=== PATIENT | female | born 1965 | race Caucasian/White ===

== ENCOUNTER → 2020-01-07 11:35 | Outpatient (BNVA) | payer SELFPAY | PROVIDERS: Family Provider Nurse Practitioner Family; PCP Nurse Practitioner Family; Visit Provider Emergency Medicine | DX: R05 Cough (principal); R09.89 Other specified symptoms and signs involving the circulatory and respiratory systems; F17.200 Nicotine dependence, unspecified, uncomplicated | CPT/HCPCS: 71046 ==

== ENCOUNTER → 2021-03-14 11:27 | Outpatient (BNVA) | payer SELFPAY | PROVIDERS: Family Provider Nurse Practitioner Family; PCP Nurse Practitioner Family; Visit Provider Family Medicine | DX: R53.83 Other fatigue (principal); I10 Essential (primary) hypertension; Z13.1 Encounter for screening for diabetes mellitus; Z13.220 Encounter for screening for lipoid disorders; Z13.6 Encounter for screening for cardiovascular disorders | CPT/HCPCS: 80053; 80061; 85025 ==

== ENCOUNTER → 2021-03-29 11:25 | Outpatient (BNVA) | payer SELFPAY | PROVIDERS: Family Provider Nurse Practitioner Family; PCP Nurse Practitioner Family; Visit Provider Family Medicine | DX: Z13.220 Encounter for screening for lipoid disorders (principal); Z13.6 Encounter for screening for cardiovascular disorders; I10 Essential (primary) hypertension; Z13.1 Encounter for screening for diabetes mellitus | CPT/HCPCS: 80053; 80061 ==

== ENCOUNTER 2021-06-19 01:40 | Emergency (ER) | payer OTHER, SELFPAY ==
[2021-06-19 01:53] VITALS: BP 127/80; PULSE 99; RESP 16; TEMP 37; O2SAT 88; BMI 23.6
--- NOTE | 2021-06-19 02:00 | XRR_ITS ---
PROCEDURE INFORMATION: Exam: XR Chest Exam date and time: 06/19/2021 2:00 AM Age: 56 years old Clinical indication: Chest wall pain; Additional info: Cp TECHNIQUE: Imaging protocol: XR of the chest. Views: 1 view. COMPARISON: CR XR chest 2V* [id number] 01/07/2020 11:46 AM FINDINGS: Lungs: Unremarkable. No consolidation. Pleural spaces: Unremarkable. No pleural effusion. No pneumothorax. Heart/Mediastinum: Unremarkable. No cardiomegaly. Bones/joints: Unremarkable. XR/XR chest 1V portable [id number] IMPRESSION: No acute findings.
--- NOTE | 2021-06-19 02:00 | ECG_ITS ---
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 Measurements Intervals [place] Rate: 96 P: 78 UT: 182 QRS: 69 QRSD: 85 T: 55 QT: 347 QTc: 441 Interpretive Statements SINUS RHYTHM POSSIBLE RIGHT ATRIAL ENLARGEMENT [0.25mV P-WAVE] No previous ECG available for comparison Electronically Signed On 06-19-2021 16:58:50 MASTER CONTROL ENGINEER by Татьяна Roberts M.D. [id number] f
--- NOTE | 2021-06-19 02:27 | ED_ITS ---
HPI - Chest Pain General: Chief Complaint: Chest Pain Stated Complaint: SOS Left Side Body Pain\Chest Pains Time Seen by Provider: 06/19/21 01:59 Source: patient History of Present Illness: 56-year-old female with a history of COPD. She presents with sharp chest pain, left-sided radiating down her left arm. She says it has been there all day. She says in order to get the pain to go away, she drank alcohol most of the day, without any relief. She states the pain comes and goes. She has been coughing. Productive of clear sputum. No fever. She has had contact with Covid positive patients. She has not used an inhaler, stating she could not afford it. She denies history of heart disease. MD complaint: chest pain Pertinent past history: other Onset (ago): hour(s) Timing of current episode: episodic Prior episodes: Yes Onset: during rest Pain location: left chest Pain radiation: left arm Severity: severe Quality: sharp Relieving factors: nothing Exacerbating factors: nothing Context: recent illness Associated symptoms: Reports diaphoresis and dyspnea; Deny abdominal pain, fever(s), leg edema, nausea, palpitations or vomiting Treatment prior to arrival: none Review of Systems Const: Reports: diaphoresis; Denies: fever(s) Card: Denies: palpitations Resp: Reports: dyspnea GI: Reports: diarrhea; Denies: abdominal pain, nausea or vomiting Skin/Breast: Denies: rash Psych: Reports: anxiety PFSH ED PFSH: Medical History COPD (chronic obstructive pulmonary disease) Hypertension Smoking Social History (Reviewed 04/25/21 @ 07:21 by Karlene Olivera [facility]) Smoking and tobacco status: current every day smoker cigarettes Packs smoked per day: 1 Alcohol intake: current Alcohol intake frequency: 3 or more drinks per day Alcohol type: beer Physical Exam Const: GENERAL APPEARANCE: cooperative and anxious NUTRITIONAL APPEARANCE: thin HENMT: COMMON NORMALS: normocephalic and Normal external nose present HEAD & SCALP: normocephalic FACE & SINUS: normal facial exam NOSE: Normal external nose present Eye: COMMON NORMALS: Equal, round and reactive pupils present and EOMs intact bilaterally PUPIL: Yes Equal, round and reactive pupils present Chest: COMMONS NORMALS: normal inspection of the chest CHEST: Yes tenderness (Left anterior chest wall) Resp: COMMON NORMALS: normal respiratory effort, No use of accessory muscles and clear to auscultation bilaterally AUSCULTATION: clear to auscultation bilaterally Cardio: COMMON NORMALS: regular rate and regular rhythm RATE: regular rate RHYTHM: regular rhythm GI: COMMON NORMALS: Normal to inspection, nondistended, normoactive bowel sounds present, Soft to palpation and non-tender PALPATION: Yes Soft to palpation Extremity: COMMON NORMALS: no pedal edema Neuro: DICK COMA SCALE: document GCS findings [place] coma scale eye opening: Spontaneous [place] coma scale verbal response: Orientated [place] coma scale motor response: Obey commands [place] coma scale total score: 15 Course Vital Signs: Vital signs: Vital Signs Temperature 98.6 F 06/19/21 01:53 Pulse Rate 94 06/19/21 02:49 Respiratory Rate 13 06/19/21 02:49 Blood Pressure 147/64 06/19/21 02:49 Pulse Oximetry 100 06/19/21 02:49 MDM - Chest Pain Medical Decision Making 56-year-old female with pleuritic chest pain, cough, some shortness of breath. EKG shows a sinus rhythm with a rate of 95. Normal axis. Intervals are normal. No acute ST changes. First troponin is 6. CBC is normal. Sodium is 128, likely the result of an alcohol level of 284. Chest pain is improved after morphine. Her Covid swab is negative. Chest x-ray is negative. Her D-dimer is negative. She will be allowed home with treatment for COPD exacerbation causing pleuritic chest pain. Covid PCR is pending. Lab Data : 06/19/21 02:39 06/19/21 02:39 Radiology Impressions Chest X-Ray 06/19/21 02:00 IMPRESSION: No acute findings. Laboratory Results WBC 6.5 10^3/uL (4.0-10.0) 06/19/21 02:39 RBC 4.50 10^6/uL (4.1-5.3) 06/19/21 02:39 Hgb 14.5 g/dL (11.5-15.3) 06/19/21 02:39 Hct 41.9 % (37.0-47.0) 06/19/21 02:39 MCV 93.1 fl (81-99) 06/19/21 02:39 MCH 32.2 pg (28.0-34.0) 06/19/21 02:39 MCHC 34.6 g/dL (30.0-36.0) 06/19/21 02:39 RDW 12.3 % (12.1-15.1) 06/19/21 02:39 Plt Count 261 10^3/cmm (130-400) 06/19/21 02:39 MPV 10.3 fL (7.4-10.4) 06/19/21 02:39 Neut % (Auto) 42.5 % 06/19/21 02:39 Lymph % (Auto) 47.5 % 06/19/21 02:39 [place] % (Auto) 5.1 % 06/19/21 02:39 Eos % (Auto) 3.7 % 06/19/21 02:39 Baso % (Auto) 0.9 % 06/19/21 02:39 Neut # (Auto) 2.78 10^3/uL (1.8-7.7) 06/19/21 02:39 Lymph # (Auto) 3.1 10^3/uL (0.8-4.8) 06/19/21 02:39 [place] # (Auto) 0.3 10^3/uL (0.2-0.9) 06/19/21 02:39 Eos # (Auto) 0.2 10^3/uL (0.0-0.8) 06/19/21 02:39 Baso # (Auto) 0.1 10^3/uL (0.0-0.1) 06/19/21 02:39 Nucleated RBC % (auto) 0 % 06/19/21 02:39 Nucleated RBCs # 0.0 /100WBC 06/19/21 02:39 D-Dimer 0.32 ug/mIFEU (0-0.59) 06/19/21 03:00 Sodium 128 mmol/L (136-145) L 06/19/21 02:39 Potassium 4.7 mmol/L (3.5-5.1) 06/19/21 02:39 Chloride 92 mmol/L (98-107) L 06/19/21 02:39 Carbon Dioxide 23 mmol/L (22-29) 06/19/21 02:39 Anion Gap 17.7 (5-19) 06/19/21 02:39 BUN 8 mg/dL (6-20) 06/19/21 02:39 Creatinine 0.4 mg/dL (0.5-0.9) L 06/19/21 02:39 GFR Calculation 165.7 mL/min (90-130) H 06/19/21 02:39 Glucose 87 mg/dL (65-115) 06/19/21 02:39 Calculated Osmolality 264 mOsm/kg (285-295) L 06/19/21 02:39 Calcium 8.5 mg/dL (8.5-10.5) 06/19/21 02:39 Total Bilirubin 0.2 mg/dL (0.15-1.2) 06/19/21 02:39 AST 24 U/L (0-32) 06/19/21 02:39 ALT 16 U/L (0-33) 06/19/21 02:39 Alkaline Phosphatase 81 IU/L (35-105) 06/19/21 02:39 Creatine Kinase 232 U/L (26-192) H 06/19/21 02:39 Troponin T Baseline 8 ng/L (0-10) 06/19/21 02:39 NT-Pro-B Natriuret Pep 75 pg/mL (0-125) 06/19/21 02:39 Total Protein 7.0 g/dL (6.6-8.7) 06/19/21 02:39 Albumin 4.8 g/dL (3.5-5.2) 06/19/21 02:39 Globulin 2.2 g/dL (1.3-4.6) 06/19/21 02:39 Ethyl Alcohol 284 mg/dL (0-10) H 06/19/21 02:39 SARS-CoV-2 Ag (Rapid) Negative (Negative) 06/19/21 03:00 Discharge Plan Discharge Patient Disposition: Home Clinical Impression: Chest pain, Bronchitis, Alcohol intoxication Condition: Stable Prescriptions: New Medrol (Alfredo) 4 mg tablets,dose pack See Rx Instructions .ROUTE .COMPLEX Qty: 21 0RF Rx Instructions: orally per package directions albuterol sulfate 90 mcg/actuation HFA aerosol inhaler 2 inh INHALATION Q4H PRN (Reason: shortness of breath or wheezing) Qty: 6.7 1RF No Action ibuprofen [Advil] 200 mg tablet 200 mg PO Q6H PRN0RF verapamil 80 mg tablet 80 mg PO TID 30 Days Qty: 90 0RF cyclobenzaprine 10 mg tablet 10 mg PO TID MDD 3 tabs PRN (Reason: muscle spasm) Qty: 30 1RF Discharge Orders: Discharge ED (Routine); Ordered 06/19/21 Ordered By: Danilo Crowell Referrals: Sukhjinder Bower FNP [Primary Care Provider] - 4-7 days Discharge Diet: Advance as tolerated Discharge Activity: Limit activity as instructed Patient Instructions: Chest Pain (ED), Acute Bronchitis (ED), Alcohol Into xication (ED) Activity Restrictions/Additional Instructions: Return for worsening chest pain, shortness of breath, fever greater than 100, other concerning symptoms. Follow-up with your doctor next week Coding Level of Care Code ED Rack Washer for Tejasg Fwd Exam Comprehensive
[2021-06-19 02:48] LABS: Basophils # 0.1 10^3/uL (0.0-0.1); Basophils % 0.9 %; Eosinophils # 0.2 10^3/uL (0.0-0.8); Eosinophils % 3.7 %; Hematocrit 41.9 % (37.0-47.0); Hemoglobin 14.5 g/dL (11.5-15.3); Lymphocytes # 3.1 10^3/uL (0.8-4.8); Lymphocytes % 47.5 %; Mean Corpuscular HGB Conc 34.6 g/dL (30.0-36.0); Mean Corpuscular Hemoglobin 32.2 pg (28.0-34.0); Mean Corpuscular Volume 93.1 fl (81-99); Mean Platelet Volume 10.3 fL (7.4-10.4); Monocytes # 0.3 10^3/uL (0.2-0.9); Monocytes % 5.1 %; Neutrophils # 2.78 10^3/uL (1.8-7.7); Neutrophils % 42.5 %; Nucleated Red Blood Cells % 0 %; Platelet Count 261 10^3/cmm (130-400); Red Cell Distribution Width 12.3 % (12.1-15.1); White Blood Count 6.5 10^3/uL (4.0-10.0)
[2021-06-19 02:49] VITALS: BP 147/64; PULSE 94; RESP 13; O2SAT 100
[2021-06-19 03:21] LABS: Troponin(5th) Baseline 8 ng/L (0-10)
[2021-06-19 03:22] LABS: D Dimer 0.32 ug/mIFEU (0-0.59)
[2021-06-19 03:30] LABS: SARS Covid-2 Antigen Negative (Negative)
[2021-06-19 03:30] LABS: Albumin Level 4.8 g/dL (3.5-5.2); Alcohol Level 284 mg/dL (0-10); Alkaline Phosphatase 81 IU/L (35-105); Blood Urea Nitrogen 8 mg/dL (6-20); Calcium 8.5 mg/dL (8.5-10.5); Carbon Dioxide 23 mmol/L (22-29); Chloride 92 mmol/L (98-107); Globulin 2.2 g/dL (1.3-4.6); Glomerular Filtration Rate 165.7 mL/min (90-130); Glucose 87 mg/dL (65-115); NT Pro B Type Natriuretic Pept 75 pg/mL (0-125); Osmolality Calculated 264 mOsm/kg (285-295); Sodium 128 mmol/L (136-145); Total Bilirubin 0.2 mg/dL (0.15-1.2)
[2021-06-19 03:32] LABS: Alanine Aminotransferase 16 U/L (0-33); Anion Gap 17.7 (5-19); Aspartate Amino Transferase 24 U/L (0-32); Creatine Phosphokinase 232 U/L (26-192); Potassium 4.7 mmol/L (3.5-5.1)
--- NOTE | 2021-06-19 04:00 | ECG_ITS ---
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 Measurements Intervals [place] Rate: 87 P: 73 MN: 182 QRS: 71 QRSD: 79 T: 58 QT: 370 QTc: 445 Interpretive Statements SINUS RHYTHM No previous ECG available for comparison Electronically Signed On 06-19-2021 17:03:54 PL[address] CHANGE ROOF BOLTER by Татьяна Roberts M.D. [id number]
[2021-06-19 04:05] VITALS: RESP 16; O2SAT 99
[2021-06-19] MEDS: ondansetron 2 mg/ML SDV 2 mL 4 MG IVP (04:05)
[2021-06-19] MEDS: morphine 4 mg/mL SDV 1 mL IVP (04:05)
[2021-06-19 04:13] VITALS: BP 120/74; PULSE 91; RESP 17; O2SAT 94
[2021-06-20 17:03] LABS: Quest SARS-CoV-2 RNA NOT DETECTED (NOT DETECTED)
--- NOTE | 2021-06-22 16:00 | PC.NURSE ---
Notified of Negative test
== END 2021-06-19 04:15 | disposition home or self-care (01) ==
PROVIDERS: Emergency Provider Emergency Medicine; PCP Nurse Practitioner Family
DX: R07.9 Chest pain, unspecified (principal); J40 Bronchitis, not specified as acute or chronic; F10.129 Alcohol abuse with intoxication, unspecified; Y90.8 Blood alcohol level of 240 mg/100 ml or more; Z20.822 Contact with and (suspected) exposure to COVID-19; J44.9 Chronic obstructive pulmonary disease, unspecified; I10 Essential (primary) hypertension; F17.210 Nicotine dependence, cigarettes, uncomplicated
CPT/HCPCS: 71045; 80053; 80307; 82550; 83880; 84484; 85025; 85378; 87426; 87635; 93005; 96374; 96375; 99284; J2270; J2405; J2930

== ENCOUNTER → 2021-11-03 10:46 | Outpatient (BNVA) | payer OTHER, SELFPAY | PROVIDERS: PCP Nurse Practitioner Family; Visit Provider Family Medicine | DX: J43.9 Emphysema, unspecified (principal); M62.830 Muscle spasm of back; G44.019 Episodic cluster headache, not intractable; Z11.59 Encounter for screening for other viral diseases; Z11.4 Encounter for screening for human immunodeficiency virus [HIV]; I10 Essential (primary) hypertension | CPT/HCPCS: 80048; 86705; 86706; 86803; 87340; 87806 ==

== ENCOUNTER → 2022-03-14 13:38 | Outpatient (BNVA) | payer OTHER, SELFPAY | PROVIDERS: PCP Family Medicine; Visit Provider Family Medicine | DX: M62.830 Muscle spasm of back (principal); G44.019 Episodic cluster headache, not intractable; M54.9 Dorsalgia, unspecified; Z11.3 Encounter for screening for infections with a predominantly sexual mode of transmission | CPT/HCPCS: 72100; 81000; 87077; 87086; 87184; 87491; 87591; 87624; 87661 ==

== ENCOUNTER → 2023-03-14 13:26 | Outpatient (BNVA) | payer OTHER, SELFPAY | PROVIDERS: PCP Family Medicine; Visit Provider Family Medicine | DX: I10 Essential (primary) hypertension (principal); Z13.220 Encounter for screening for lipoid disorders; Z13.6 Encounter for screening for cardiovascular disorders; R63.5 Abnormal weight gain; Z68.26 Body mass index [BMI] 26.0-26.9, adult; R53.83 Other fatigue; J44.9 Chronic obstructive pulmonary disease, unspecified | CPT/HCPCS: 80053; 80061; 84443; 85025 ==

== ENCOUNTER 2023-12-12 13:00 | Outpatient (CLI) | payer OTHER, SELFPAY ==
--- NOTE | 2023-12-12 12:55 | MM_ITS ---
WS: [id number] BILATERAL 3D TOMOSYNTHESIS DIGITAL SCREENING MAMMOGRAPHY WITH CAD CLINICAL INFORMATION: SCREENING HISTORY: Screening mammogram. No current complaints. COMPARISON: New baseline TECHNIQUE: Bilateral CC and MLO views. FINDINGS: The breasts are composed of heterogeneous fibroglandular density tissue, which can limit the detectio n of small underlying mass lesions. No suspicious mass, asymmetry, calcifications, or architectural d istortion. No evidence of malignancy. MM/[place] [id number] IMPRESSION: BI-RADS: 1-Negative FOLLOW UP: 1 Year Follow-up Recommend return to annual screening mammography.
== END 2023-12-12 13:01 | disposition home or self-care (01) ==
PROVIDERS: PCP Family Medicine; Visit Provider Nurse Practitioner Family
DX: Z12.31 Encounter for screening mammogram for malignant neoplasm of breast (principal)
CPT/HCPCS: 77063; 77067

== ENCOUNTER 2023-12-20 12:01 | Emergency (ER) | payer OTHER, SELFPAY ==
[2023-12-20 12:39] VITALS: BP 154/93; PULSE 77; RESP 20; TEMP 36.6; O2SAT 96; BMI 26.2
--- NOTE | 2023-12-20 12:58 | XRR_ITS ---
PROCEDURE INFORMATION: Exam: XR Abdomen Exam date and time: 12/20/2023 1:04 PM Age: 58 years old Clinical indication: Generalized; Patient HX: Abdominal pain and SOB. Constipation. TECHNIQUE: Imaging protocol: Radiologic exam of the abdomen. Views: 3 or more views. COMPARISON: CR XR lumbar spine 2-3V* [id number] 03/14/2022 1:46 PM FINDINGS: Gastrointestinal tract: There is mild retained fecal material within the colon. There is no evidence of bowel obstruction. Intraperitoneal space: Normal. No free air. Bones/joints: Unremarkable for age. XR/XR acute abdomen series [id number] IMPRESSION: 1. No acute abnormality. 2. Mild retained fecal material within the colon
[2023-12-20 13:33] LABS: Bilirubin Urine Negative (Negative); Blood Urine 1+ (Negative); Glucose Urine UA Negative (Normal); Ketones Urine Negative (Negative); Leukocyte Esterase Urine 3+ (Negative); Nitrate Urine Positive (Negative); Protein Urine Negative (Negative); Specific Gravity, Urine 1.012 (1.005-1.030); Urine Appearance Cloudy (CLEAR); Urine Color Yellow (Yellow); Urobilinogen Urine 0.2 mg/dL (Negative)
[2023-12-20 13:39] LABS: Bacteria Urine 4+ /hpf; Hyaline Casts Urine 1.21 /lpf; RBC Urine 0-2 /hpf (0-2); WBC Urine 21-50 /hpf (0-5)
[2023-12-20 13:41] LABS: Add Urine Culture? Yes
[2023-12-20 13:50] VITALS: BP 137/83; PULSE 69; RESP 16; O2SAT 96
--- NOTE | 2023-12-20 14:04 | CT_ITS ---
WS: [id number] CT ABDOMEN AND PELVIS WITH CONTRAST HISTORY: Abdominal pain TECHNIQUE: Imaging performed of the abdomen and pelvis with IV contrast. Single phase imaging of the abdomen. Coronal and sagittal reformats are submitted. All CT scans at [facility] use at [address] one of these dose optimization techniques: automated exposure control; mA and/or kV adjustment per patient size (includes targeted exams where dose is matched to clinical indication); or iterative re construction. IV CONTRAST: Omnipaque 350; 100 mL IV. Oral contrast: No DLP: 684.26 mGy.cm COMPARISON: None available. Lower thorax: Lung bases are clear. Heart is normal size. No hiatal hernia. Liver/biliary system: Normal size with no intrahepatic dilatation. Gallbladder: Normal. No gallstones or wall thickening. No pericholecystic fluid. Pancreas: Normal size pancreas and pancreatic duct. No adjacent inflammation. Spleen: Normal size spleen. No mass or infarct. Adrenal glands: Normal. Right kidney: Normal size RIGHT kidney. No obstruction. There is a slightly lobulated cystic mass wit h septations from the medial inferior kidney measuring 1.9 x 1.7 x 2.0 cm. Hounsfield units are sligh tly elevated. There is an additional too small to characterize hypodensity in the lower pole cortex. Left kidney: Normal. Aorta: Mild atherosclerosis with no aneurysm. Lymphadenopathy: None. Free fluid: None. GI tract: Nondistended stomach. No small bowel obstruction. Normal appendix. No colon mass or obstruc tion. No significant diverticular disease. Abdominal wall: Fat containing umbilical hernia. Pelvis: No free fluid. Urinary bladder is not well distended. Uterus is midline and heterogeneous. Ut erus cannot be further evaluated by CT. Bones: Unremarkable. CT/CT abdomen pelvis w con* [id number] IMPRESSION: 1. No acute abdominal or pelvic abnormalities are identified. 2. No ascites. 3. Normal appendix. 4. No GI tract obstruction. 5. Complex cyst lower pole RIGHT kidney measures 1.9 x 1.7 x 2.0 cm. Recommend follow-up renal mass CT protocol in 3 months to document stability.
--- NOTE | 2023-12-20 14:05 | ED_ITS ---
HPI - Abdominal Pain 2 General: Chief Complaint: Abdominal Pain Stated Complaint: abd pain Time Seen by Provider: 12/20/23 12:57 History of Present Illness: 58-year-old female with a history of chr onic constipation, chronic hyponatremia, hypertension, COPD and tobacco dependence who presents to the emergency room with lower abdominal pain. She was seen by her primary few days ago and took some medications for constipation and had good bowel movement yesterday but has continued to have lower abdominal pain. She has had some nausea and vomiting. No chest pain. No shortness of breath. No fevers. No altered mental status. No focal motor deficits. Review of Systems 2 Narrative: Constitutional symptoms: Negative except as documented in HPI. Skin symptoms: Negative except as documented in HPI. Eye symptoms: Negative except as documented in HPI. ENMT symptoms: Negative except as documented in HPI. Respiratory symptoms: Negative except as documented in HPI. Cardiovascular symptoms: Negative except as documented in HPI. Gastrointestinal symptoms: Negative except as documented in HPI. Genitourinary symptoms: Negative except as documented in HPI. Musculoskeletal symptoms: Negative except as documented in HPI. Neurologic symptoms: Negative except as documented in HPI. Psychiatric symptoms: Negative except as documented in HPI. Endocrine symptoms: Negative except as documented in HPI. PFSH ED 2 PFSH: Medical History COPD (chronic obstructive pulmonary disease) Hypertension Smoking Social History Smoking and tobacco/nicotine status: current every day tobacco/nicotine user cigarettes Packs smoked per day: 1 Alcohol intake: current Alcohol intake frequency: 3 or more drinks per day Alcohol type: beer Substance/Drug Use: never Female Reproductive History: Spontaneous abortions: No Physical Exam 2 Narrative: EXAM NARRATIVE: General: Alert, no acute distress. Skin: Warm, dry. Head: Normocephalic, atraumatic. Neck: Supple, trachea midline. Eye: Extraocular movements are intact. Ears, nose, mouth and throat: Tacky oral mucosa Cardiovascular: Regular, Normal peripheral perfusion. Respiratory: Lungs are clear to auscultation, respirations are non-labored, breath sounds are equal, Symmetrical chest wall expansion. Gastrointestinal: Soft, moderate suprapubic tenderness, Non distended Musculoskeletal: Normal ROM, no deformity. Neurological: Alert and oriented, No focal neurological deficit observed. Psychiatric: Cooperative, appropriate mood & affect. Course 2 Vital Signs: Vital signs: Vital Signs Temperature 97.9 F 12/20/23 12:39 Pulse Rate 71 12/20/23 15:18 Respiratory Rate 16 12/20/23 15:18 Blood Pressure 137/83 12/20/23 15:18 Pulse Oximetry 100 12/20/23 15:18 Oxygen Delivery Me thod Room Air 12/20/23 15:18 MDM - Abdominal Pain Medical Decision Making Medical decision making: Differential diagnosis including but not limited to and based on the above HPI, review of systems and physical exam: In this patient with lower abdominal pain I would have concern for constipation, diverticulitis, UTI etc. Orders placed to evaluate differential diagnosis based on the above differential, HPI and physical exam Lab Review: Laboratory results were reviewed and interpreted by myself the emergency room physician. Mild leukopenia. Some mild hyponatremia so some fluids were given. No liver enzyme elevation. Urine does show a positive infection that is nitrite, leukocyte esterase and leukocyte positive. 4+ bacteria. CT of the abdomen and pelvis with contrast: No acute abdominal or pelvic abnormalities. No ascites. Normal appendix. No obstructions. There is a complex cyst on the right kidney that recommended CT protocol in 3 months. This was reviewed and interpreted by myself the emergency room physician. I also reviewed the radiology report. I reviewed the patient's medical record. Reexamination: Patient says her abdominal pain is better. Patient remained stable. No increased work of breathing. No altered mental status. No focal motor deficits. Assessment and plan: Urinary tract infection Dehydration Chronic constipation Tobacco dependence Renal cyst Hyponatremia -Hydrochlorothiazide being held for hyponatremia saline given. She says she has chronic issues with her sodium and had stopped eating sodium because of her blood pressure. ?IV fluids, IV Toradol, IV Zofran and IV Rocephin in the emergency room. -We discussed follow-up for the renal cyst. - Discharged home - Discussed findings and plan with patient. Answered any questions. - All laboratory values were reviewed and interpreted personally by myself, the ER physician - All imaging was reviewed and interpreted personally by myself, the ER physician. - Evaluation and treatment of this problem were appropriate in the emergency setting I spent 3-4 minutes talking to the patient about tobacco cessation. We discussed the risk associated with tobacco use and the importance of stopping tobacco use. The patient seems receptive to the information. Lab Data 12/20/23 14:07 12/20/23 14:07 Labs/Radiology: Radiology Impressions Chest/Abdomen X-ray 12/20/23 12:58 IMPRESSION: 1. No acute abnormality. 2. Mild retained fecal material within the colon Abdomen/Pelvis CT 12/20/23 14:04 IMPRESSION: 1. No acute abdominal or pelvic abnormalities are identified. 2. No ascites. 3. Normal appendix. 4. No GI tract obstruction. 5. Complex cyst lower pole RIGHT kidney measures 1.9 x 1.7 x 2.0 cm. Recommend follow-up renal mass CT protocol in 3 months to document stability. Laboratory Results WBC 2.76 10^3/uL (3.29-11.43) L 12/20/23 14:07 RBC 5.06 10^6/uL (3.85-5.65) 12/20/23 14:07 Hgb 16.10 g/dL (11.27-16.99) 12/20/23 14:07 Hct 45.3 % (36-47) 12/20/23 14:07 MCV 89.5 fl (85-98) 12/20/23 14:07 MCH 31.8 pg (27-33) 12/20/23 14:07 MCHC 35.5 g/dL (30-55) 12/20/23 14:07 RDW 11.5 % (12.1-15.1) L 12/20/23 14:07 Plt Count 251 10^3/cmm (157-399) 12/20/23 14:07 MPV 9.8 fL (7.4-10.4) 12/20/23 14:07 Neut % (Auto) 45.3 % 12/20/23 14:07 Lymph % (Auto) 39.5 % 12/20/23 14:07 [place] % (Auto) 11.2 % 12/20/23 14:07 Eos % (Auto) 2.9 % 12/20/23 14:07 Baso % (Auto) 0.7 % 12/20/23 14:07 Neut # (Auto) 1.25 10^3/uL (1.8-7.7) L 12/20/23 14:07 Lymph # (Auto) 1.1 10^3/uL (0.8-4.8) 12/20/23 14:07 [place] # (Auto) 0.3 10^3/uL (0.2-0.9) 12/20/23 14:07 Eos # (Auto) 0.1 10^3/uL (0.0-0.8) 12/20/23 14:07 Baso # (Auto) 0.0 10^3/uL (0.0-0.1) 12/20/23 14:07 Nucleated RBC % (auto) 0 % 12/20/23 14:07 Nucleated RBCs # 0.0 /100WBC 12/20/23 14:07 Sodium 121 mmol/L (136-145) L 12/20/23 14:07 Potassium 3.6 mmol/L (3.5-5.1) 12/20/23 14:07 Chloride 83 mmol/L (98-107) L 12/20/23 14:07 Carbon Dioxide 24 mmol/L (22-29) 12/20/23 14:07 Anion Gap 17.6 (5-19) 12/20/23 14:07 BUN 9 mg/dL (6-20) 12/20/23 14:07 Creatinine 0.6 mg/dL (0.5-0.9) 12/20/23 14:07 GFR Calculation 103.0 mL/min (90-130) 12/20/23 14:07 Glucose 102 mg/dL (65-115) 12/20/23 14:07 Calculated Osmolality 251 mOsm/kg (285-295) L 12/20/23 14:07 Lactic Acid 1.0 mmol/L (0.5-2.2) 12/20/23 14:07 Calcium 9.0 mg/dL (8.5-10.5) 12/20/23 14:07 Total Bilirubin 0.2 mg/dL (0.15-1.2) 12/20/23 14:07 AST 34 U/L (0-32) H 12/20/23 14:07 ALT 27 U/L (0-33) 12/20/23 14:07 Alkaline Phosphatase 94 U/L (35-105) 12/20/23 14:07 C-Reactive Protein 3.0 mg/L (0.0-4.9) 12/20/23 14:07 Total Protein 7.4 g/dL (6.6-8.7) 12/20/23 14:07 Albumin 4.3 g/dL (3.5-5.2) 12/20/23 14:07 Globulin 3.1 g/dL (1.3-4.6) 12/20/23 14:07 Lipase 30 U/L (13-60) 12/20/23 14:07 Urine Color Yellow (Yellow) 12/20/23 13:16 Urine Appearance Cloudy (CLEAR) A 12/20/23 13:16 Urine pH 7.0 (5-7) 12/20/23 13:16 Ur Specific [place] 1.012 (1.005-1.030) 12/20/23 13:16 Urine Protein Negative (Negative) 12/20/23 13:16 Urine Glucose (UA) Negative (Normal) 12/20/23 13:16 Urine Ketones Negative (Negative) 12/20/23 13:16 Urine Blood 1+ (Negative) A 12/20/23 13:16 Urine Nitrate Positive (Negative) A 12/20/23 13:16 Urine Bilirubin Negative (Negative) 12/20/23 13:16 Urine Urobilinogen 0.2 mg/dL (Negative) 12/20/23 13:16 Ur Leukocyte Esterase 3+ (Negative) A 12/20/23 13:16 Urine RBC 0-2 /hpf (0-2) 12/20/23 13:16 Urine WBC 21-50 /hpf (0-5) H 12/20/23 13:16 Ur Squamous Epith Cells 11-20 /hpf (0-5) 12/20/23 13:16 Amorphous Sediment Not Reportable 12/20/23 13:16 Urine Bacteria 4+ /hpf (NONE) H 12/20/23 13:16 Hyaline Casts 1.21 /lpf 12/20/23 13:16 All radiology interpretation(s) finalized by discharge Discharge Plan Discharge Patient Disposition: Home Clinical Impression: Urinary tract infection, Complex renal cyst, Dehydration, Chronic constipation, Tobacco dependence Condition: Stable Prescriptions: New hydrocodone-acetaminophen 5-325 mg tablet 1 tab PO Q6H PRN (Reason: pain) Qty: 20 0RF diclofenac sodium 50 mg tablet,delayed release (DR/EC) 50 mg PO BID PRN (Reason: pain) Qty: 14 0RF Miralax 17 gram/dose powder 17 g PO DAILY Qty: 510 0RF Rx Instructions: Take 1 scoop daily while taking pain medications. cefdinir 300 mg capsule 300 mg PO BID 7 Days Qty: 14 0RF ondansetron 8 mg tablet,disintegrating 8 mg PO Q6H Qty: 14 0RF Rx Instructions: Take 1/2-1 tab every 6 hours as needed for nausea and vomiting No Action tizanidine 2 mg tablet 2 mg PO TID PRN (Reason: muscle spasticity) 30 Days Qty: 90 2RF albuterol sulfate 90 mcg/actuation HFA aerosol inhaler 2 inh INHALATION Q4H PRN (Reason: shortness of breath or wheezing) Qty: 6.7 0RF hydrochlorothiazide 25 mg tablet 25 mg PO QAM 90 Days Qty: 90 0RF verapamil 180 mg capsule,ext rel. pellets 24 hr 180 mg PO DAILY Discharge Orders: Discharge ED (Routine); Ordered 12/20/23 Ordered By: Jackeline Jordan Discharge Diet: Usual diet Discharge Activity: Resume usual activity Patient Instructions: How to Stop Smoking (ED), Urinary Tract Infection in Women (ED) Activity Restrictions/Additional Instructions: He did have follow-up imaging for a cyst that was seen on your kidney. This needs done in 3 months. Please discuss this finding with your primary provider. Please hold your hydrochlorothiazide increase your salt intake. You need to follow-up with your PCP as soon as possible to change it to new blood pressure medication. Also will need repeat sodium level soon. Thank you for choosing [facility] for your healthcare needs today. Please realize this is an emergency room and that we are providing you with a medical screening exam and this may not be complete and all inclusive of all the testing and or work up that you may need to determine your ailment or severity of your illness. You have been screened and evaluated and felt safe for discharge. Health conditions do change or evolve sometimes and as such it is important that you follow up with your Primary Doctor to be re checked, 3-5 days is a general good time frame for follow up. You are always welcome to return to the ED for re assessment if your symptoms are worsening or you have new concerns Coding Level of Care Code ED Hose Tubing Backer for Vicente Rosario
[2023-12-20 14:23] LABS: Basophils % 0.7 %; Eosinophils # 0.1 10^3/uL (0.0-0.8); Eosinophils % 2.9 %; Hematocrit 45.3 % (36-47); Lymphocytes # 1.1 10^3/uL (0.8-4.8); Lymphocytes % 39.5 %; Mean Corpuscular HGB Conc 35.5 g/dL (30-55); Mean Corpuscular Hemoglobin 31.8 pg (27-33); Mean Corpuscular Volume 89.5 fl (85-98); Mean Platelet Volume 9.8 fL (7.4-10.4); Monocytes # 0.3 10^3/uL (0.2-0.9); Monocytes % 11.2 %; Neutrophils # 1.25 10^3/uL (1.8-7.7); Neutrophils % 45.3 %; Nucleated Red Blood Cells % 0 %; Platelet Count 251 10^3/cmm (157-399); Red Blood Count 5.06 10^6/uL (3.85-5.65); Red Cell Distribution Width 11.5 % (12.1-15.1); White Blood Count 2.76 10^3/uL (3.29-11.43)
[2023-12-20] MEDS: iohexol 350 mg/mL 500 mL Btl (per mL) IV (15:06)
[2023-12-20 15:18] VITALS: BP 137/83; PULSE 71; RESP 16; O2SAT 100
[2023-12-20] MEDS: sodium chloride 0.9% 1,000 ML 999 ML IV (15:29)
[2023-12-20] MEDS: cefTRIAXone 1,000 mg SDV 1000 MG IVP (15:30)
[2023-12-20] MEDS: ondansetron 2 mg/ML SDV 2 mL 4 MG IVP (15:30)
[2023-12-20] MEDS: ketorolac 30 mg/mL INJ IVP (15:30)
[2023-12-20 15:32] LABS: Alanine Aminotransferase 27 U/L (0-33); Albumin Level 4.3 g/dL (3.5-5.2); Alkaline Phosphatase 94 U/L (35-105); Anion Gap 17.6 (5-19); Aspartate Amino Transferase 34 U/L (0-32); Blood Urea Nitrogen 9 mg/dL (6-20); Carbon Dioxide 24 mmol/L (22-29); Chloride 83 mmol/L (98-107); Creatinine Clr Calc Pharmacy 117.6088; Globulin 3.1 g/dL (1.3-4.6); Glucose 102 mg/dL (65-115); Lipase 30 U/L (13-60); Osmolality Calculated 251 mOsm/kg (285-295); Potassium 3.6 mmol/L (3.5-5.1); Sodium 121 mmol/L (136-145); Total Bilirubin 0.2 mg/dL (0.15-1.2); Total Protein 7.4 g/dL (6.6-8.7)
[2023-12-20 16:16] VITALS: BP 143/85; PULSE 69; RESP 16; TEMP 36.6; O2SAT 99
--- NOTE | 2023-12-21 15:16 | PC.NURSE ---
this nurse took a critical lab result from the lab and notified Dr. Jordan. Dr. Jordan said to wait and see what the other 3 blood cultures resulted as.
== END 2023-12-20 16:11 | disposition home or self-care (01) ==
PROVIDERS: Emergency Provider Emergency Medicine
DX: N39.0 Urinary tract infection, site not specified (principal); N28.1 Cyst of kidney, acquired; E86.0 Dehydration; K59.09 Other constipation; J44.9 Chronic obstructive pulmonary disease, unspecified; I10 Essential (primary) hypertension; F17.210 Nicotine dependence, cigarettes, uncomplicated
CPT/HCPCS: 36415; 74022; 74177; 80053; 81001; 83605; 83690; 85025; 86140; 87040; 87077; 87086; 87150; 87186; 87205; 96374; 96375; 99285; J0696; J1885; J2405; J7030; Q9967

== ENCOUNTER 2024-12-17 12:55 | Outpatient (CLI) | payer OTHER, SELFPAY ==
--- NOTE | 2024-12-17 13:01 | MM_ITS ---
WS: [id number] BILATERAL 3D TOMOSYNTHESIS DIGITAL SCREENING MAMMOGRAPHY WITH CAD CLINICAL INFORMATION: SCREENING HISTORY: Screening mammogram. No current complaints. COMPARISON: 2023 TECHNIQUE: Bilateral CC and MLO views. FINDINGS: The breasts are composed of heterogeneous fibroglandular density tissue, which can limit the detection of small underlying mass lesions. Incidental punctate calcification LEFT breast. Partially obscured ovoid nodular densities central RIGHT breast appears more prominent compared to previous. Recommend further evaluation with RIGHT breast diagnostic mammography and ultrasound if persistent. Unremarkable LEFT breast. MM/MM [facility] tomosynthesis [id number] IMPRESSION: DENSITY: The breasts are heterogeneously dense, which may obscure small masses. BI-RADS: 0 - Incomplete: Need additional imaging evaluation FOLLOW UP: Need Additional Imaging Recommend RIGHT breast diagnostic mammography and ultrasound if persistent.
== END 2024-12-17 12:56 | disposition home or self-care (01) ==
LOC: RAD 12:56
PROVIDERS: Visit Provider Nurse Practitioner Family
DX: Z12.31 Encounter for screening mammogram for malignant neoplasm of breast (principal); R92.322 Mammographic fibroglandular density, left breast; R92.1 Mammographic calcification found on diagnostic imaging of breast; N63.41 Unspecified lump in right breast, subareolar
CPT/HCPCS: 77063; 77067

== ENCOUNTER 2025-01-19 10:43 | Outpatient (CLI) | payer OTHER, SELFPAY ==
--- NOTE | 2025-01-19 10:46 | MM_ITS ---
WS: [id number] RIGHT 3D TOMOSYNTHESIS DIGITAL MAMMOGRAPHY WITH CAD CLINICAL INFORMATION: ABNORMAL MAMMOGRAM HISTORY: Additional views COMPARISON: 12/17/2024 TECHNIQUE: 3 views of the right breast were obtained. FINDINGS: The right breast is composed of heterogeneous fibroglandular density tissue, which can limit the detection of small underlying mass lesions. This partially compresses out on the spot compression views. Ultrasound described below. ULTRASOUND BREAST RIGHT TECHNIQUE: Ultrasound right breast focused area of concern. CLINICAL INFORMATION: ABNORMAL MAMMOGRAM FINDINGS: Ultrasound RIGHT breast 11 to 1 o'clock position. Dense underlying parenchymal tissue. No suspicious abnormalities in the area of concern. Recommend return to annual screening mammography. MM/MM diag RT tomosynthesis [id number] DENSITY: The breasts are heterogeneously dense, which may obscure small masses. BI-RADS: 2 - Benign FOLLOW UP: 1 Year Follow-up Recommend return to annual screening mammography.
== END 2025-01-19 10:44 | disposition home or self-care (01) ==
LOC: RAD 10:44
PROVIDERS: Visit Provider Nurse Practitioner Family
DX: R92.8 Other abnormal and inconclusive findings on diagnostic imaging of breast (principal); R92.323 Mammographic fibroglandular density, bilateral breasts; R92.333 Mammographic heterogeneous density, bilateral breasts
CPT/HCPCS: 76642; 77061; G0279